=== PATIENT | female | born 1975 | race Caucasian/White ===

== ENCOUNTER → 2017-01-23 | Outpatient (CLI) | payer OTHER ==
[~2017-01-23] MED LIST: ACET325T38 PO; ALBU17AE3 IH; AMIT75TA2 PO; ASPI1TAB22 PO; BUTA1CAP39 PO; CYCL10TA9 PO; DCS100C PO; FERR-57 PO; GADOBUTROL 10 MMOL/10 ML (GADAVIST) VIAL IV ONE; HYDR-3454 PO; IBP600T1 PO; LORA10TA56 PO; NAPR-243 PO; NORE1TAB95 PO; OMEP20TA2 PO; ONAB100V IM; SUMA25TA3 PO; ZINC50TA49 PO
--- NOTE | 2017-01-23 15:39 | Diagnostic Imaging Report ---
PROCEDURE: MR imaging of the brain with and without contrast. TECHNIQUE: Multiplanar, multisequence MR imaging of the brain was performed with and without contrast. INDICATION: Migraine. Vision changes. 10 mL of Gadovist is administered intravenously. FINDINGS: There is no diffusion restriction to suggest an acute infarct or other diffusion abnormality. The brain parenchyma demonstrate minimal periventricular T2 hyperintense signal abnormalities similar to 01/19/2016. No associated mass effect and no postcontrast enhancement is seen. There is no adverse development from the prior study. No hydrocephalus. No extra-axial fluid collection is seen. The central vascular flow voids appear unremarkable. The internal auditory canals and inner ear structures appear symmetric. The pituitary gland is normal in size. No hypothalamic or pineal region mass. The orbits and paranasal sinuses appear grossly unremarkable. IMPRESSION: Unchanged minimal right periventricular white matter T2 hyperintense signal without mass effect or contrast enhancement is potentially related to focal gliosis from prior transient demyelinating process or other abnormality. No acute process. Dictated by: Dictated on workstation # [id number]
== END ==
LOC: RAD 13:56
PROVIDERS: ATTEND Nurse Practitioner Family
DX: G43.909 Migraine, unspecified, not intractable, without status migrainosus (principal); H53.9 Unspecified visual disturbance
CPT/HCPCS: 70553

== ENCOUNTER 2017-06-21 08:33 | Outpatient (RCR) | payer OTHER ==
[~2017-06-21 08:33] MED LIST changes: -GADOBUTROL 10 MMOL/10 ML (GADAVIST) VIAL IV ONE
[2017-06-21 09:41] LABS: BASOPHILS # (AUTO) 0.1 10^3/uL (0.0-0.1); BASOPHILS % (AUTO) 2 % (0-10); EOSINOPHILS # (AUTO) 0.2 10^3/uL (0.0-0.3); EOSINOPHILS % (AUTO) 4 % (0-10); LYMPHOCYTES # (AUTO) 1.5 X 10^3 (1.0-4.0); LYMPHOCYTES % (AUTO) 36 % (12-44); MEAN CORPUSCULAR HEMOGLOBIN 27 PG (25-34); MEAN CORPUSCULAR HGB CONC 33 G/DL (32-36); MEAN CORPUSCULAR VOLUME 81 FL (80-99); MEAN PLATELET VOLUME 9.8 FL (7.4-10.4); MONOCYTES # (AUTO) 0.4 X 10^3 (0.0-1.0); MONOCYTES % (AUTO) 8 % (0-12); NEUTROPHILS # (AUTO) 2.2 X 10^3 (1.8-7.8); NEUTROPHILS % (AUTO) 51 % (42-75); PLATELET COUNT 362 10^3/uL (130-400); RED BLOOD COUNT 4.95 10^6/uL (4.35-5.85); RED CELL DISTRIBUTION WIDTH 18.8 % (10.0-14.5); WHITE BLOOD COUNT 4.3 10^3/uL (4.3-11.0)
[2017-06-21 10:03] LABS: ANISOCYTOSIS MODERATE; BAND NEUTROPHILS 0 %; BASOPHILS % (MANUAL) 2 %; EOSINOPHILS % (MANUAL) 5 %; LYMPHOCYTES % (MANUAL) 37 %; NEUTROPHILS % (MANUAL) 51 %
[2017-06-21 10:13] LABS: ALANINE AMINOTRANSFERASE 34 U/L (0-55); ALBUMIN 4.3 GM/DL (3.2-4.5); ANION GAP 8 MMOL/L (5-14); ASPARTATE AMINO TRANSFERASE 26 U/L (5-34); BILIRUBIN,TOTAL 0.4 MG/DL (0.1-1.0); BLOOD UREA NITROGEN 11 MG/DL (7-18); BUN/CREATININE RATIO 13; CALCIUM 9.6 MG/DL (8.5-10.1); CARBON DIOXIDE 26 MMOL/L (21-32); CHLORIDE 105 MMOL/L (98-107); CREATININE SERUM 0.82 MG/DL (0.60-1.30); GFR ESTIMATED > 60; GLUCOSE 85 MG/DL (70-105); POTASSIUM 4.2 MMOL/L (3.6-5.0); SODIUM 139 MMOL/L (135-145); TOTAL PROTEIN 7.7 GM/DL (6.4-8.2)
[2017-06-21 10:22] LABS: PEP REPORT SEE PATH REPORT
[2017-06-21 10:53] LABS: THYROID STIMULATING HORMONE 1.93 UIU/ML (0.35-4.94)
[2017-06-21 11:36] LABS: %SAT TOTAL IRON BINDING CAPIC 7 % (15-50); TIBC 436 ug/dL (280-380)
[2017-06-22 10:05] LABS: UIBC 405 ug/dL (55-450)
[2017-06-25 11:18] LABS: CLIN PATHOLOGY REPORT FOOTNOTE
[2017-06-25 11:19] LABS: SERUM PROTEIN ELEC DETAIL L-17-0011831
[2017-06-25 11:39] LABS: LIGHT CHAIN KAPPA SERUM QUANT 25.79 mg/L (3.30-19.40); LIGHT CHAIN LAMBDA SERUM QUANT 23.53 mg/L (5.71-26.30)
[2017-06-27 08:13] LABS: IMMUNOFIX PATH REPORT NUMBER Complete (Complete)
== END 2017-07-14 | disposition home or self-care (01) ==
LOC: ONC 08:33
PROVIDERS: ATTEND Internal Medicine Hematology & Oncology
DX: D50.9 Iron deficiency anemia, unspecified (principal); R53.83 Other fatigue; E03.9 Hypothyroidism, unspecified; Z79.899 Other long term (current) drug therapy
CPT/HCPCS: 36415; 80053; 82728; 83540; 83883; 84155; 84165; 84443; 85007; 85027; 85045; 86334; 99214

== ENCOUNTER 2017-07-07 20:45 | Outpatient (CLI) | payer OTHER | END 2017-07-08 06:50 | disposition home or self-care (01) | LOC: SLEEP 20:45 | PROVIDERS: ATTEND Internal Medicine Hematology & Oncology | DX: G47.33 Obstructive sleep apnea (adult) (pediatric) (principal) | CPT/HCPCS: 95810 ==

== ENCOUNTER 2017-07-10 13:14 | Outpatient (RCR) | payer OTHER | END 2017-07-14 | disposition home or self-care (01) | PROVIDERS: ATTEND Nurse Practitioner Family | DX: M54.6 Pain in thoracic spine (principal) ==

== ENCOUNTER → 2017-08-03 | Outpatient (CLI) | payer OTHER ==
[2017-08-03 11:13] LABS: UR PEP SEE PATH
[2017-08-06 09:07] LABS: PROTEIN 24 HR 84 MG/24H (10-150); PROTEIN UR MG/DL 7 MG/DL; URINE CREATININE 126 MG/DL
== END ==
LOC: LAB 11:00
PROVIDERS: ATTEND Internal Medicine Hematology & Oncology
DX: D47.2 Monoclonal gammopathy (principal)
CPT/HCPCS: 36415; 82570; 84156; 84166

== ENCOUNTER → 2017-08-08 | Outpatient (CLI) | payer OTHER ==
[~2017-08-08] MED LIST changes: +RT-ALBUTEROL SULF 2.5 MG/3 ML PRE-MIX VIAL IH ONE
== END ==
LOC: RT 14:28
PROVIDERS: ATTEND Nurse Practitioner Family
DX: J45.909 Unspecified asthma, uncomplicated (principal); R06.02 Shortness of breath
CPT/HCPCS: 94060; 94640; 94726; 94729

== ENCOUNTER 2017-08-29 12:56 | Outpatient (RCR) | payer OTHER ==
[2017-08-01 11:07] LABS: BASOPHILS % (AUTO) 1 % (0-10); EOSINOPHILS # (AUTO) 0.1 10^3/uL (0.0-0.3); EOSINOPHILS % (AUTO) 2 % (0-10); HEMATOCRIT 37 % (35-52); HEMOGLOBIN 12.4 G/DL (11.5-16.0); LYMPHOCYTES # (AUTO) 1.3 X 10^3 (1.0-4.0); LYMPHOCYTES % (AUTO) 21 % (12-44); MEAN CORPUSCULAR HEMOGLOBIN 28 PG (25-34); MEAN CORPUSCULAR HGB CONC 33 G/DL (32-36); MEAN CORPUSCULAR VOLUME 83 FL (80-99); MEAN PLATELET VOLUME 9.9 FL (7.4-10.4); MONOCYTES # (AUTO) 0.5 X 10^3 (0.0-1.0); MONOCYTES % (AUTO) 7 % (0-12); NEUTROPHILS # (AUTO) 4.4 X 10^3 (1.8-7.8); NEUTROPHILS % (AUTO) 70 % (42-75); PLATELET COUNT 326 10^3/uL (130-400); RED CELL DISTRIBUTION WIDTH 14.8 % (10.0-14.5); WHITE BLOOD COUNT 6.3 10^3/uL (4.3-11.0)
[2017-08-01 11:36] LABS: BASOPHILS % (MANUAL) 1 %; ELLIPT/OVALOCYTES SLIGHT; EOSINOPHILS % (MANUAL) 5 %; LYMPHOCYTES % (MANUAL) 23 %; MONOCYTES % (MANUAL) 7 %; NEUTROPHILS % (MANUAL) 59 %; REACTIVE LYMPHOCYTES 5 %
[2017-08-09 11:07] LABS: ABSOLUTE RETIC # 45 10e9/L (24-90); BASOPHILS # (AUTO) 0.1 10^3/uL (0.0-0.1); BASOPHILS % (AUTO) 1 % (0-10); EOSINOPHILS # (AUTO) 0.2 10^3/uL (0.0-0.3); EOSINOPHILS % (AUTO) 3 % (0-10); HEMATOCRIT 38 % (35-52); HEMOGLOBIN 12.6 G/DL (11.5-16.0); LYMPHOCYTES # (AUTO) 1.6 X 10^3 (1.0-4.0); LYMPHOCYTES % (AUTO) 23 % (12-44); MEAN CORPUSCULAR HEMOGLOBIN 28 PG (25-34); MEAN CORPUSCULAR HGB CONC 33 G/DL (32-36); MEAN CORPUSCULAR VOLUME 84 FL (80-99); MEAN PLATELET VOLUME 9.3 FL (7.4-10.4); MONOCYTES # (AUTO) 0.6 X 10^3 (0.0-1.0); MONOCYTES % (AUTO) 9 % (0-12); NEUTROPHILS # (AUTO) 4.4 X 10^3 (1.8-7.8); NEUTROPHILS % (AUTO) 64 % (42-75); PLATELET COUNT 288 10^3/uL (130-400); RED BLOOD COUNT 4.52 10^6/uL (4.35-5.85); RED CELL DISTRIBUTION WIDTH 15.3 % (10.0-14.5); WHITE BLOOD COUNT 6.9 10^3/uL (4.3-11.0)
[2017-08-09 12:09] LABS: ANISOCYTOSIS SLIGHT; EOSINOPHILS % (MANUAL) 3 %; LYMPHOCYTES % (MANUAL) 24 %; MONOCYTES % (MANUAL) 10 %; NEUTROPHILS % (MANUAL) 63 %; POIKILOCYTOSIS SLIGHT
[2017-08-09 12:10] LABS: ELLIPT/OVALOCYTES SLIGHT
[~2017-08-29 12:56] MED LIST changes: -RT-ALBUTEROL SULF 2.5 MG/3 ML PRE-MIX VIAL IH ONE
== END 2017-10-30 | disposition home or self-care (01) ==
LOC: ONC 12:56
PROVIDERS: ATTEND Internal Medicine Hematology & Oncology
DX: D50.9 Iron deficiency anemia, unspecified (principal); R53.83 Other fatigue; E03.9 Hypothyroidism, unspecified; Z79.899 Other long term (current) drug therapy
CPT/HCPCS: 36415; 38221; 82728; 85007; 85027; 85045; 88237; 88264; 88280; 88305; 88311; 88312; 88313; 99213

== ENCOUNTER → 2017-10-22 | Outpatient (RCR) | payer OTHER | END | disposition home or self-care (01) | PROVIDERS: ATTEND Nurse Practitioner Family | DX: M54.6 Pain in thoracic spine (principal) ==

== ENCOUNTER 2017-11-14 08:45 | Outpatient (RCR) | payer OTHER | END 2018-01-21 14:58 | disposition home or self-care (01) | PROVIDERS: ATTEND Nurse Practitioner Family | DX: M54.6 Pain in thoracic spine (principal) ==

== ENCOUNTER → 2017-11-26 | Outpatient (CLI) | payer OTHER ==
--- NOTE | 2017-11-26 12:31 | Diagnostic Imaging Report ---
INDICATION: Back pain. TIME OF EXAM: 11:24 AM FINDINGS: Curvature and alignment of the thoracic spine is normal. The vertebral body heights are well maintained. No acute compression fracture is identified. The pedicles and paraspinous line are intact. IMPRESSION: No acute abnormality is identified. Dictated by: Dictated on workstation # [id number]
--- NOTE | 2017-11-26 12:32 | Diagnostic Imaging Report ---
INDICATION: Low back pain. TIME OF EXAM: 11:26 AM 3 views of the lumbar spine were obtained. FINDINGS: Curvature and alignment is normal. Vertebral body heights and disc spaces are well-maintained. No fracture or subluxation is identified. IMPRESSION: No acute bony abnormality is detected. Dictated by: Dictated on workstation # [id number]
--- NOTE | 2017-11-26 12:33 | Diagnostic Imaging Report ---
INDICATION: Neck pain. TIME OF EXAM: 11:20 a.m. Curvature and alignment of the cervical spine is normal. Vertebral body heights are maintained. Disc spaces are preserved. The prevertebral tissues are unremarkable. The odontoid appears intact. No fractures are seen. IMPRESSION: No acute bony abnormality is detected. Dictated by: Dictated on workstation # [id number]
== END ==
LOC: RAD 10:47
PROVIDERS: ATTEND Nurse Practitioner Family
DX: M54.2 Cervicalgia (principal); M54.5 Low back pain; M54.6 Pain in thoracic spine
CPT/HCPCS: 72040; 72072; 72100

== ENCOUNTER → 2017-11-26 | Outpatient (CLI) | payer OTHER ==
[2017-11-26 12:19] LABS: FREE T4 (FREE THYROXINE) 1.23 NG/DL (0.70-1.48)
== END ==
LOC: LAB 11:21
PROVIDERS: ATTEND Nurse Practitioner Family
DX: E03.9 Hypothyroidism, unspecified (principal); R53.81 Other malaise
CPT/HCPCS: 36415; 84439; 84443

== ENCOUNTER → 2017-12-29 | Outpatient (CLI) | payer OTHER ==
--- NOTE | 2017-12-29 11:22 | Diagnostic Imaging Report ---
PROCEDURE: MR imaging cervical spine without contrast. TECHNIQUE: Multiplanar, multisequence MR imaging of the cervical spine was performed without contrast. INDICATION: Spinal pain. Study compared 10/14/2007. FINDINGS: The cervical spinal cord has a normal volume, normal morphology and normal signal intensity. Cervical alignment is stable. The vertebral body heights are maintained. The marrow signal intensity unremarkable. There is no paravertebral mass, hemorrhage or fluid collection and the cervical spinal canal appears widely patent at all vertebral body and disc space levels. There is very minimal desiccation and trace bulging of discs at the C3-C4, C4-C5, C5-C6 and C6-C7 levels showing minimal progression from the prior study but resulting in no foraminal encroachment. IMPRESSION: Very slight mid to lower cervical desiccated annular disc bulges without focal herniation nor resultant stenosis. Alignment within normal limits with no acute osseous pathology and a stable normal appearance of the cervical spinal cord. Dictated by: Dictated on workstation # [id number]
--- NOTE | 2017-12-29 11:28 | Diagnostic Imaging Report ---
PROCEDURE: MRI lumbar spine. TECHNIQUE: Multiplanar, multisequence MRI of the lumbar spine was performed without contrast. DATE: 12/29/2017. COMPARISON: Lumbar spine radiographs 11/26/2017. INDICATION: 42-year-old female, low back pain. FINDINGS: There is normal lumbosacral spine alignment. The bone marrow signal is unremarkable. The visualized cord and conus medullaris is unremarkable and terminates at the L1-L2 level. The disc heights are well preserved. There is no disc dessication. L1-L2: There is no disc bulge. The facet joints and ligamentum flavum are unremarkable. There is no foraminal narrowing. There is no spinal canal stenosis. L2-L3: There is no disc bulge. The facet joints and ligamentum flavum are unremarkable. There is no foraminal narrowing. There is no spinal canal stenosis. L3-L4: There is no disc bulge. The facet joints and ligamentum flavum are unremarkable. There is no foraminal narrowing. There is no spinal canal stenosis. L4-L5: There is no disc bulge. The facet joints and ligamentum flavum are unremarkable. There is no foraminal narrowing. There is no spinal canal stenosis. L5-S1: There is no disc bulge. The facet joints and ligamentum flavum are unremarkable. There is no foraminal narrowing. There is no spinal canal stenosis. IMPRESSION: [Unremarkable magnetic resonance imaging of the lumbosacral spine.] Dictated by: Dictated on workstation # [id number]
--- NOTE | 2017-12-29 11:32 | Diagnostic Imaging Report ---
INDICATION: Back pain. No previous for direct comparison. The study, however, correlated with plain films 11/26/2017. FINDINGS: The thoracic spinal cord has a normal volume and normal morphology and normal signal intensity. CSF circumscribes the cord at all levels. Thoracic vertebral body heights are maintained. The alignment is anatomic. The marrow signal intensity was unremarkable. There is desiccation and bulging of the T9-T10 disc at the midline where there is a small protrusion slightly indenting the midline ventral thecal sac resulting in no substantial canal stenosis. The patient's neural foramen are widely patent bilaterally at all levels. Remaining discs well-hydrated and nondisplaced. Ligamentous structures unremarkable. Facet relationships normal. IMPRESSION: Small focal midline T9-T10 central posterior disc protrusion without significant stenosis. Normal cord, normal alignment, no acute bony pathology. Dictated by: Dictated on workstation # [id number]
== END ==
LOC: RAD 10:08
PROVIDERS: ATTEND Nurse Practitioner Family
DX: M51.24 Other intervertebral disc displacement, thoracic region (principal)
CPT/HCPCS: 72141; 72146; 72148

== ENCOUNTER → 2018-05-28 | Outpatient (RCR) | payer OTHER ==
[2018-02-27 10:53] LABS: BASOPHILS % (AUTO) 1 % (0-10); EOSINOPHILS # (AUTO) 0.1 10^3/uL (0.0-0.3); EOSINOPHILS % (AUTO) 3 % (0-10); HEMATOCRIT 39 % (35-52); HEMOGLOBIN 13.4 G/DL (11.5-16.0); LYMPHOCYTES # (AUTO) 1.3 X 10^3 (1.0-4.0); LYMPHOCYTES % (AUTO) 23 % (12-44); MEAN CORPUSCULAR HEMOGLOBIN 31 PG (25-34); MEAN CORPUSCULAR HGB CONC 34 G/DL (32-36); MEAN CORPUSCULAR VOLUME 91 FL (80-99); MEAN PLATELET VOLUME 9.7 FL (7.4-10.4); MONOCYTES # (AUTO) 0.4 X 10^3 (0.0-1.0); MONOCYTES % (AUTO) 8 % (0-12); NEUTROPHILS # (AUTO) 3.5 X 10^3 (1.8-7.8); NEUTROPHILS % (AUTO) 66 % (42-75); PLATELET COUNT 313 10^3/uL (130-400); RED BLOOD COUNT 4.32 10^6/uL (4.35-5.85); RED CELL DISTRIBUTION WIDTH 13.4 % (10.0-14.5); WHITE BLOOD COUNT 5.4 10^3/uL (4.3-11.0)
[2018-02-27 11:15] LABS: ALANINE AMINOTRANSFERASE 28 U/L (0-55); ALBUMIN 4.4 GM/DL (3.2-4.5); ALKALINE PHOSPHATASE 69 U/L (40-136); BILIRUBIN,TOTAL 0.3 MG/DL (0.1-1.0); BUN/CREATININE RATIO 21; CALCIUM 9.5 MG/DL (8.5-10.1); CARBON DIOXIDE 25 MMOL/L (21-32); CHLORIDE 105 MMOL/L (98-107); CREATININE SERUM 0.76 MG/DL (0.60-1.30); GFR ESTIMATED > 60; POTASSIUM 3.9 MMOL/L (3.6-5.0); SODIUM 140 MMOL/L (135-145); TOTAL PROTEIN 7.4 GM/DL (6.4-8.2)
[2018-02-27 11:25] LABS: GLUCOSE 59 MG/DL (70-105)
[2018-03-06 07:40] LABS: IMMUNOFIX PATH REPORT NUMBER Complete (Complete)
[2018-05-28 08:12] LABS: BASOPHILS % (AUTO) 1 % (0-10); EOSINOPHILS # (AUTO) 0.3 10^3/uL (0.0-0.3); EOSINOPHILS % (AUTO) 5 % (0-10); HEMATOCRIT 40 % (35-52); HEMOGLOBIN 13.6 G/DL (11.5-16.0); LYMPHOCYTES # (AUTO) 1.1 X 10^3 (1.0-4.0); LYMPHOCYTES % (AUTO) 20 % (12-44); MEAN CORPUSCULAR HEMOGLOBIN 30 PG (25-34); MEAN CORPUSCULAR HGB CONC 34 G/DL (32-36); MEAN CORPUSCULAR VOLUME 90 FL (80-99); MEAN PLATELET VOLUME 9.5 FL (7.4-10.4); MONOCYTES # (AUTO) 0.5 X 10^3 (0.0-1.0); MONOCYTES % (AUTO) 10 % (0-12); NEUTROPHILS # (AUTO) 3.6 X 10^3 (1.8-7.8); NEUTROPHILS % (AUTO) 66 % (42-75); PLATELET COUNT 299 10^3/uL (130-400); RED BLOOD COUNT 4.49 10^6/uL (4.35-5.85); WHITE BLOOD COUNT 5.4 10^3/uL (4.3-11.0)
== END | disposition home or self-care (01) ==
LOC: ONC 02-27 10:30
PROVIDERS: ATTEND Internal Medicine Hematology & Oncology
DX: D50.9 Iron deficiency anemia, unspecified (principal); E03.9 Hypothyroidism, unspecified; Z79.899 Other long term (current) drug therapy
CPT/HCPCS: 36415; 80053; 82728; 83883; 84155; 84165; 85025; 86334; 99213

== ENCOUNTER 2018-06-07 13:34 | Outpatient (RCR) | payer OTHER | END 2018-06-14 | disposition home or self-care (01) | LOC: ONC 13:34 | PROVIDERS: ATTEND Internal Medicine Hematology & Oncology | DX: D50.9 Iron deficiency anemia, unspecified (principal); E03.9 Hypothyroidism, unspecified; Z79.899 Other long term (current) drug therapy | CPT/HCPCS: 99213 ==

== ENCOUNTER → 2019-01-27 | Outpatient (CLI) | payer OTHER ==
--- NOTE | 2019-01-27 10:54 | Diagnostic Imaging Report ---
INDICATION: Routine screening. COMPARISON: 08/18/2015. TECHNIQUE: 2D and 3D bilateral screening mammography was performed with CAD. FINDINGS: Both breasts are heterogeneously dense, limiting the sensitivity of mammography. No dominant mass or malignant appearing microcalcifications are seen. The axillae are unremarkable. IMPRESSION: No mammographic features suspicious for malignancy are identified. ACR BI-RADS Category 1: Negative. Result letter will be mailed to the patient. Note: At least 10% of breast cancer is not imaged by mammography. Dictated by: Dictated on workstation # [id number]
== END ==
LOC: RAD 08:22
PROVIDERS: ATTEND Obstetrics & Gynecology
DX: Z12.31 Encounter for screening mammogram for malignant neoplasm of breast (principal)
CPT/HCPCS: 77067

== ENCOUNTER 2019-08-20 12:00 | Outpatient (RCR) | payer OTHER ==
[2019-08-20] MEDS ORDERED: LEVO25TA5 PO (12:08)
[2019-08-20] MEDS ORDERED: MELA10CA2 PO (12:08)
[2019-08-20] MEDS ORDERED: MAGN400T39 PO (12:08)
[2019-08-20] MEDS ORDERED: DOCU-143 PO (12:08)
[2019-08-20] MEDS ORDERED: MULT1CAP27 PO (12:08)
[2019-08-20] MEDS ORDERED: FERR-84 PO (12:08)
[2019-08-20] MEDS ORDERED: DULO60CA6 PO (12:08)
[2019-08-20] MEDS ORDERED: CETI10TA17 PO (12:08)
[2019-08-20] MEDS ORDERED: RT-ALBUINH IH (12:08)
[2019-08-20] MEDS ORDERED: MONT10TA24 PO (12:08)
[2019-08-20] MEDS ORDERED: ONAB100V IJ (12:10)
[2019-08-27] MEDS ORDERED: IBUP-844 PO (09:17)
[2019-08-27] MEDS ORDERED: ACET-78 PO (09:17)
[2019-08-27] MEDS ORDERED: OXC5T PO (09:17)
== END 2019-11-18 | disposition home or self-care (01) ==
LOC: LAB 12:00 → EDSTATUS 08-22 11:32
PROVIDERS: ATTEND Family Medicine
DX: E03.4 Atrophy of thyroid (acquired) (principal)
CPT/HCPCS: 36415; 84436; 84443; 85025; 86850; 86900; 86901; 87081

== ENCOUNTER 2019-08-22 11:39 | Outpatient (RCR) | payer OTHER ==
[2019-08-20 12:13] VITALS: BP 118/79
[2019-08-20 13:42] LABS: BASOPHILS # (AUTO) 0.1 10^3/uL (0.0-0.1); BASOPHILS % (AUTO) 1 % (0-10); EOSINOPHILS # (AUTO) 0.3 10^3/uL (0.0-0.3); EOSINOPHILS % (AUTO) 3 % (0-10); HEMATOCRIT 42 % (35-52); HEMOGLOBIN 14.2 G/DL (11.5-16.0); LYMPHOCYTES # (AUTO) 1.7 X 10^3 (1.0-4.0); LYMPHOCYTES % (AUTO) 17 % (12-44); MEAN CORPUSCULAR HEMOGLOBIN 30 PG (25-34); MEAN CORPUSCULAR HGB CONC 34 G/DL (32-36); MEAN CORPUSCULAR VOLUME 90 FL (80-99); MEAN PLATELET VOLUME 10.4 FL (7.4-10.4); MONOCYTES # (AUTO) 0.7 X 10^3 (0.0-1.0); MONOCYTES % (AUTO) 7 % (0-12); NEUTROPHILS # (AUTO) 7.3 X 10^3 (1.8-7.8); NEUTROPHILS % (AUTO) 73 % (42-75); PLATELET COUNT 349 10^3/uL (130-400); RED CELL DISTRIBUTION WIDTH 13.3 % (10.0-14.5)
[~2019-08-22] VITALS: Ht 167 cm; Wt 87.6 kg
[~2019-08-22 11:39] MED LIST changes: +CETI10TA17 PO; +DOCU-143 PO; +DULO60CA6 PO; +FERR-84 PO; +LEVO25TA5 PO; +MAGN400T39 PO; +MELA10CA2 PO; +MONT10TA24 PO; +MULT1CAP27 PO; +ONAB100V IJ; +RT-ALBUINH IH
[2019-08-22 12:00] LABS: BILIRUBIN,URINE NEGATIVE (NEGATIVE); CLARITY,URINE CLEAR; COLOR,URINE YELLOW; GLUCOSE, URINE (UA) NEGATIVE (NEGATIVE); KETONES,URINE NEGATIVE (NEGATIVE); LEUKOCYTE ESTERASE ,URINE 1+ (NEGATIVE); NITRITE,URINE NEGATIVE (NEGATIVE); PROTEIN,URINE NEGATIVE (NEGATIVE)
[2019-08-22 12:08] LABS: BACTERIA,URINE FEW /HPF
--- NOTE | 2019-08-26 09:24 | Progress Note-Pre Operative ---
Pre-Operative Progress Note H&P Reviewed The H&P was reviewed, patient examined and no changes noted. Date Seen by Provider: Aug 26, 2019 Time Seen by Provider: 09:20 Date H&P Reviewed: Aug 26, 2019 Time H&P Reviewed: 09:15 Pre-Operative Diagnosis: adenomyosis, endometriosis, anemia TASIA DEMPSEY DO Aug 26, 2019 09:24 POS
[2019-08-27] MEDS ORDERED: IBUP-844 PO (09:17)
[2019-08-27] MEDS ORDERED: OXC5T PO (09:17)
[2019-08-27] MEDS ORDERED: ACET-78 PO (09:17)
== END 2019-11-20 | disposition home or self-care (01) ==
LOC: PREOP 11:39
PROVIDERS: ATTEND Obstetrics & Gynecology
DX: Z01.812 Encounter for preprocedural laboratory examination (principal); N80.9 Endometriosis, unspecified; N92.1 Excessive and frequent menstruation with irregular cycle; D64.9 Anemia, unspecified
CPT/HCPCS: 36415; 81000; 85025; 86850; 86900; 86901; 87081; 87088

== ENCOUNTER 2019-08-26 07:26 | Day surgery (SDC) | payer OTHER ==
[2019-08-26] VITALS (12 sets, daily range): BP systolic 97–119; BP diastolic 60–77
[~2019-08-26] VITALS: Ht 167 cm; Wt 87.6 kg
[2019-08-26] MEDS ORDERED: SEVOFLURANE (ULTANE) 15 ML INHAL SOLN ONE ×4 (07:49→11:37)
[2019-08-26] MEDS ORDERED: fentaNYL INJECTION 100 MCG/2 ML AMP ONE ×2 (07:49→10:43)
[2019-08-26] MEDS ORDERED: DEXAMETHASONE 10 MG/ML (DECADRON) 1 ML VIAL ONE (07:49)
[2019-08-26] MEDS ORDERED: proPOfol 200 MG/20 ML (DIPRIVAN) VIAL IV ONE (07:49)
[2019-08-26] MEDS ORDERED: ONDANSETRON 4 MG/2 ML (SDV) Z0FRAN ONE (07:49)
[2019-08-26] MEDS ORDERED: ROCURONIUM 10 MG/ML 5 ML SYRINGE IV ONE (07:49)
[2019-08-26] MEDS ORDERED: LIDOCAINE PF 2% 5 ML (XYLOCAINE) VIAL ONE (07:49)
[2019-08-26] MEDS ORDERED: MIDAZOLAM 2 MG/2 ML (VERSED) VIAL ONE (07:49)
[2019-08-26] MEDS ORDERED: CLINDAMYCIN 600 MG/50 ML IVPB 50 ML IV ONE (08:15)
[2019-08-26] MEDS: LACTATED RINGERS 1,000 ML IV PRN ×2 (08:19→10:24)
[2019-08-26] MEDS ORDERED: BUPIVACAINE 0.5% 30 ML (SENSORCAINE) VIAL ONE (08:53)
[2019-08-26] MEDS ORDERED: BUP/EPI 0.25% 1:200,000 (MARCAINE) 10 ML VIAL IJ ONE (08:54)
[2019-08-26] MEDS ORDERED: KETOROLAC 30 MG/ML VIAL ONE (11:02)
[2019-08-26] MEDS ORDERED: GLYCOPYRROLATE 0.2 MG/ML (ROBINUL) 2 ML VIAL ONE (11:02)
[2019-08-26] MEDS ORDERED: NEOSTIGMINE 3 MG/3 ML VIAL ONE (11:02)
[2019-08-26] MEDS: KETOROLAC 30 MG/ML VIAL IV SCH ×2 (11:05→17:07)
--- NOTE | 2019-08-26 11:11 | Operative Report ---
Operative Report Date of Procedure/Surgery Aug 26, 2019 Surgeon (s) TASIA DEMPSEY DO [employer] Specialist (s): NA Post-Operative Diagnosis adenomyosis endometriosis menorrhagia an Procedure Performed Ra[facility], Bilateral salpingectomy, right ovarian fulgeration of cyst left lysis of adhesions ovary Description of Procedure Anesthesia Type: General Estimated blood loss (mL): 50 Specimen(s) collected/removed uterus, tubes Findings of the Procedure boggy uterus scarred tubes, left tube scarred to ovarian fossa right ovarian cyst/ functional, endometriosis Allergies and Home Medications Allergies Coded Allergies: cephalexin (Verified Allergy, Mild, HIVES, 08/20/19) Home Medications Albuterol Sulfate 1 Puff Puff, 2 PUFF IH Q4H PRN for COUGH, (Reported) 1 PUFF = 90 MCG Cetirizine HCl 10 Mg Tablet, 10 MG PO DAILY, (Reported) Docusate Sodium 100 Mg Capsule, 400 MG PO DAILY, (Reported) Duloxetine HCl 60 Mg Capsule.dr, 60 MG PO DAILY, (Reported) Ferrous Sulfate 325 Mg Tablet, 325 MG PO DAILY, (Reported) Levothyroxine Sodium 25 Mcg Tablet, 25 MCG PO DAILY, (Reported) Magnesium Oxide 400 Mg Tablet, 400 MG PO DAILY, (Reported) Melatonin 10 Mg Capsule, 10 MG PO DAILY, (Reported) Montelukast Sodium 10 Mg Tablet, 10 MG PO DAILY, (Reported) Multivitamin 1 Each Capsule, 1 EACH PO DAILY, (Reported) Patient Home Medication List Home Medication List Reviewed: Yes TASIA DEMPSEY DO Aug 26, 2019 11:11 POS
[2019-08-26] MEDS ORDERED: CHLORASEPTIC LOZENGE MM PRN (11:15)
[2019-08-26] MEDS ORDERED: morphine INJ 4 MG/ML 1 ML (VIAL/SYRINGE) IVP PRN (11:15)
[2019-08-26] MEDS ORDERED: PHENYLEPHRINE 100 MCG/ML 10 ML (ANESTHESIA) SYR ONE (11:37)
[2019-08-26] MEDS ORDERED: PROMETHAZINE INJ 25 MG/ML (PHENERGAN) AMP IVP ONE (11:45)
[2019-08-26] MEDS ORDERED: ONDANSETRON 4 MG/2 ML (SDV) Z0FRAN IVP PRN (11:45)
[2019-08-26] MEDS ORDERED: morphine INJ 10 MG/ML 1ML (SYR OR VIAL) IVP ONE (11:45)
[2019-08-26] MEDS ORDERED: HYDROmorphone 2 MG/ML VIAL (DILAUDID) IV ONE (11:45)
[2019-08-26] MEDS ORDERED: MEPERIDINE (DEMEROL) INJ 50 MG/ML IVP ONE (11:45)
--- NOTE | 2019-08-26 12:30 | NUR ---
CARLOS GONZALEZ] admitted to room 3304-1, with an admitting diagnosis of ROBOTIC HYSTERECTOMY, on 08/26/19 from DAY SURGERY via , accompanied by .CARLOS GONZALEZ introduced to surroundings, call light, bed controls, phone, TV, temperature control, lights, meal times, smoking policy, visitor policy, side rail policy, bathrooms and showers. Patient Rights given to patient in the handbook.CARLOS GONZALEZ verbalizes understanding that [facility] is not responsible for the loss or damage to any personal effects or valuables that are kept in the patients posession during their hospitalization. The following Patient Care Plans were discussed with the : Discharge Planning, ,, and . CARLOS GONZALEZ verbalizes understanding of Interdisciplinary Patient Education. Patient and/or family were informed about the Rapid Response Team and its purpose.
--- NOTE | 2019-08-26 12:40 | NUR ---
INITIAL ASSESSMENT COMPLETED, VSS, NO DISTRESS NOTED, WILL MONITOR, PLAN OF CARE EXPLAINED, WILL MONITOR CLOSELY.
[2019-08-26] MEDS: LACTATED RINGERS 1,000 ML IV SCH ×2 (13:00→19:56)
--- NOTE | 2019-08-26 14:31 | NUR ---
RT HERE AT PTS BEDSIDE.
[2019-08-26] MEDS: ACETAMINOPHEN 500 MG TAB (TYLENOL) PO SCH ×2 (14:51→21:55)
--- NOTE | 2019-08-26 17:25 | NUR ---
Garcia DC'd at this time per patient's request. Every movement of the catheter causes the patient to wince in pain. Patient tearful as garica DC'd.
[2019-08-26] MEDS ORDERED: RT-ALBUTEROL SULF 2.5 MG/3 ML PRE-MIX VIAL INH PRN (18:00)
--- NOTE | 2019-08-26 18:30 | NUR ---
Patient assisted up to restroom, + void noted. Pericare completed and patient ambulated back to bed without difficulty.
--- NOTE | 2019-08-26 18:46 | NUR ---
Dr. Díaz updated on patient's status. New orders received.
[2019-08-26] MEDS ORDERED: BELLADONNA ALK/OPIUM (B & O) 30 MG SUPP PR PRN (19:00)
[2019-08-27 00:45] VITALS: BP 100/65
[2019-08-27] MEDS: KETOROLAC 30 MG/ML VIAL IV SCH ×2 (00:45→06:37)
[2019-08-27 03:45] VITALS: BP 92/52
[2019-08-27] MEDS: LACTATED RINGERS 1,000 ML IV SCH (04:14)
[2019-08-27] MEDS ORDERED: IBUPROFEN 600 MG (MOTRIN) TAB PO ONE (06:32)
[2019-08-27] MEDS: ACETAMINOPHEN 500 MG TAB (TYLENOL) PO SCH (06:36)
--- NOTE | 2019-08-27 07:09 | Anesthesia-General Post-Op ---
General Patient Condition Mental Status/LOC: Same as Preop Cardiovascular: Satisfactory Nausea/Vomiting: Absent Respiratory: Satisfactory Pain: Controlled Complications: Absent Post Op Complications Complications None Follow Up Care/Instructions Patient Instructions None needed. Anesthesia/Patient Condition Patient Condition Patient is doing well, no complaints, stable vital signs, no apparent adverse anesthesia problems. No complications reported per nursing. HANSEL BARKLEY CRNA Aug 27, 2019 07:09 POS
[2019-08-27 08:45] VITALS: BP 102/66
[2019-08-27] MEDS ORDERED: ACET-77 PO (09:17)
[2019-08-27] MEDS ORDERED: OXC5T PO (09:17)
[2019-08-27] MEDS ORDERED: IBUP-844 PO (09:17)
--- NOTE | 2019-08-27 09:19 | Discharge Inst-Women's Service ---
Discharge Inst-Women's Serv Depart Medication/Instructions New, Converted or Re-Newed RX: RX on Chart Instructions nothing in vagina for 10-12 weeks no driving for 1 week no lifting over 25 lbs Final Diagnosis endometriosis adenomyosis menorrhagia anemia Problems Reviewed?: Yes Consults/Follow Up Additional Follow Up: Yes (1 week for incision check with Codie, 10-12 weeks with dino) Activity Activity: Activity as Tolerated Driving Instructions: No Driving for 1 Week NO SMOKING: NO SMOKING Nothing Inside Vagina: No Douching, No [place], No Tampons Diet Discharge Diet: No Restrictions Symptoms to Report to DrZaki: Bleeding Excessive, Pain Increased, Fever Over 101 Degrees F, Vaginal Bleeding Increase, Cramps in Feet or Legs, Vaginal Discharge Foul For Any Problems or Questions: Contact Your Physician Skin/Wound Care Infection Signs and Symptoms: Increased Redness, Foul Odor of Wound, Increased Drainage, Skin Itchy or Has a Rash, Increased Swelling, Temperature Above 101 F Operative Area Clean and Dry: You May Remove Bandage (in 3 days, keep covered until then, may removed if wet or soiled and replace with bandage) Stitches/[place]/Dermabond: Dermabond Bathing Instructions: TASIA Cuevas DO Aug 27, 2019 09:19 POS
[2019-08-27] MEDS ORDERED: IBUPROFEN 600 MG (MOTRIN) TAB PO SCH (11:15)
== END 2019-08-27 11:30 | disposition home or self-care (01) ==
LOC: SDC 07:26 → WS 12:07 → SDC 08-27 11:30
PROVIDERS: ATTEND Obstetrics & Gynecology
DX: N72 Inflammatory disease of cervix uteri (principal); N88.8 Other specified noninflammatory disorders of cervix uteri; N83.8 Other noninflammatory disorders of ovary, fallopian tube and broad ligament; N73.6 Female pelvic peritoneal adhesions (postinfective); Z88.1 Allergy status to other antibiotic agents; Z79.899 Other long term (current) drug therapy; J45.909 Unspecified asthma, uncomplicated; E03.9 Hypothyroidism, unspecified; D50.9 Iron deficiency anemia, unspecified; E66.9 Obesity, unspecified; Z68.31 Body mass index [BMI] 31.0-31.9, adult; N80.9 Endometriosis, unspecified; G25.81 Restless legs syndrome; G43.909 Migraine, unspecified, not intractable, without status migrainosus; Z80.3 Family history of malignant neoplasm of breast; Z80.0 Family history of malignant neoplasm of digestive organs; F41.9 Anxiety disorder, unspecified; F32.9 Major depressive disorder, single episode, unspecified
CPT/HCPCS: 36415; 84439; 84703; 86850; 86900; 86901; 88307; 94664

== ENCOUNTER 2019-09-26 10:10 | Outpatient (RCR) | payer OTHER ==
[~2019-09-26 10:10] MED LIST changes: +ACET-77 PO; +IBUP-844 PO; +OXC5T PO
== END 2019-10-09 | disposition home or self-care (01) ==
DX: M54.2 Cervicalgia (principal); M26.629 Arthralgia of temporomandibular joint, unspecified side

== ENCOUNTER 2019-12-31 14:00 | Outpatient (RCR) | payer OTHER ==
[~2019-12-31 14:00] MED LIST changes: -ACET-77 PO; +ACET-78 PO; -MONT10TA24 PO; +MONT10TA26 PO
== END 2020-01-20 | disposition home or self-care (01) ==
DX: M62.89 Other specified disorders of muscle (principal); M26.629 Arthralgia of temporomandibular joint, unspecified side; J45.909 Unspecified asthma, uncomplicated; M19.90 Unspecified osteoarthritis, unspecified site; E07.9 Disorder of thyroid, unspecified; F32.9 Major depressive disorder, single episode, unspecified; M54.2 Cervicalgia; Z87.81 Personal history of (healed) traumatic fracture

== ENCOUNTER → 2020-12-28 | Outpatient (CLI) | payer OTHER ==
[~2020-12-28] MED LIST changes: -MONT10TA26 PO; +MONT10TA32 PO
--- NOTE | 2020-12-28 14:02 | Diagnostic Imaging Report ---
INDICATION: Pain, fall. COMPARISON: Imaging from the same date and CT dated 07/29/2015. TECHNIQUE: Single radiograph of the pelvis dated 12/28/2020. FINDINGS: No acute fracture or dislocation. No destructive osseous process. The sacroiliac joints are intact. Minimal degenerative changes of the pubic symphysis. The bilateral hip joints are intact. IMPRESSION: No acute osseous abnormality with minimal degenerative changes, particularly involving the pubic symphysis. Dictated by: Dictated on workstation # [id number]
--- NOTE | 2020-12-28 14:07 | Diagnostic Imaging Report ---
INDICATION: Back pain, fall COMPARISON: 11/26/2017 TECHNIQUE: 3 radiographs lumbar spine dated 12/28/2020. FINDINGS: 5 lumbar type vertebral bodies are present. Alignment of the lumbar spine is well maintained. Vertebral body heights are well-maintained. Disc space heights are well-maintained. No acute fracture. The sacroiliac joints are intact. IMPRESSION: Similar-appearing examination without acute osseous abnormality. Dictated by: Dictated on workstation # [id number]
== END ==
LOC: RAD 13:23
PROVIDERS: ATTEND Nurse Practitioner Family
DX: M16.0 Bilateral primary osteoarthritis of hip (principal)
CPT/HCPCS: 72100; 72170

== ENCOUNTER → 2021-08-18 | Outpatient (CLI) | payer OTHER ==
[~2021-08-18] MED LIST changes: -DULO60CA6 PO; +DULO60CA7 PO
--- NOTE | 2021-08-18 16:05 | Diagnostic Imaging Report ---
INDICATION: Bilateral knee pain COMPARISON: None. FINDINGS: Multiple radiographic views of the bilateral knees were obtained and show no fractures, dislocations, or other acute bony abnormalities. Joint spaces are well maintained throughout. The soft tissues appear unremarkable. No radiopaque foreign bodies are identified. IMPRESSION: Unremarkable radiographic exam of the bilateral knees. Dictated by: Dictated on workstation # [id number]
== END ==
LOC: ORTHO 14:18
PROVIDERS: ATTEND Orthopaedic Surgery
DX: M25.561 Pain in right knee (principal); M25.562 Pain in left knee
CPT/HCPCS: 73562; G0463; 99202

== ENCOUNTER 2021-09-28 14:48 | Outpatient (RCR) | payer OTHER ==
[~2021-09-28 14:48] MED LIST changes: +MONT-40 PO; -MONT10TA32 PO
== END 2021-10-14 | disposition home or self-care (01) ==
PROVIDERS: ATTEND Orthopaedic Surgery
DX: M25.562 Pain in left knee (principal); M25.561 Pain in right knee

== ENCOUNTER → 2021-11-14 | Outpatient (RCR) | payer OTHER | END | disposition home or self-care (01) | PROVIDERS: ATTEND Orthopaedic Surgery | DX: M22.42 Chondromalacia patellae, left knee (principal); M22.41 Chondromalacia patellae, right knee ==

== ENCOUNTER 2021-11-21 15:24 | Outpatient (RCR) | payer OTHER | END 2021-12-12 | disposition home or self-care (01) | PROVIDERS: ATTEND Orthopaedic Surgery | DX: M22.42 Chondromalacia patellae, left knee (principal); M22.41 Chondromalacia patellae, right knee; J45.909 Unspecified asthma, uncomplicated | CPT/HCPCS: 97110; G0283 ==

== ENCOUNTER 2021-12-16 15:25 | Outpatient (RCR) | payer OTHER | END 2022-01-12 | disposition home or self-care (01) | PROVIDERS: ATTEND Orthopaedic Surgery | DX: M22.42 Chondromalacia patellae, left knee (principal); M22.41 Chondromalacia patellae, right knee; J45.909 Unspecified asthma, uncomplicated ==

== ENCOUNTER → 2021-12-20 | Outpatient (CLI) | payer OTHER | LOC: ORTHO 11:38 | PROVIDERS: ATTEND Orthopaedic Surgery | DX: M25.562 Pain in left knee (principal); M25.561 Pain in right knee ==

== ENCOUNTER → 2022-01-24 | Outpatient (CLI) | payer OTHER ==
--- NOTE | 2022-01-24 13:09 | Diagnostic Imaging Report ---
Indication: Routine screening. Comparison is made with prior mammogram 01/27/2019 and 08/18/2015. 2-D and 3-D bilateral screening mammography was performed with CAD. CAD is utilized. The current study was also evaluated with a Computer Aided Detection (CAD) system. Both breast are heterogeneously dense, limiting the sensitivity of mammography. The parenchymal pattern appears stable. No mass or malignant-appearing microcalcifications are identified. The axillae are unremarkable. IMPRESSION: BI-RADS Category 1 No mammographic features suspicious for malignancy are identified. ACR BI-RADS Category 1: Negative. Result letter will be mailed to the patient. Note: At least 10% of breast cancer is not imaged by mammography. Dictated by: Dictated on workstation # [id number]
== END ==
LOC: RAD 09:30
PROVIDERS: ATTEND Obstetrics & Gynecology
DX: Z12.31 Encounter for screening mammogram for malignant neoplasm of breast (principal)
CPT/HCPCS: 77063; 77067

== ENCOUNTER 2022-02-07 15:41 | Outpatient (RCR) | payer OTHER | END 2022-02-11 | disposition home or self-care (01) | PROVIDERS: ATTEND Orthopaedic Surgery | DX: M22.42 Chondromalacia patellae, left knee (principal); M22.41 Chondromalacia patellae, right knee; J45.909 Unspecified asthma, uncomplicated ==

== ENCOUNTER 2022-06-26 14:07 | Outpatient (CLI) | payer OTHER | END 2022-06-26 14:25 | LOC: SLEEP 14:07 | PROVIDERS: ATTEND Family Medicine | DX: G47.36 Sleep related hypoventilation in conditions classified elsewhere (principal) | CPT/HCPCS: G0399 ==

== ENCOUNTER → 2022-11-14 | Outpatient (RCR) | payer OTHER ==
[~2022-11-14] MED LIST changes: +ALBU8.5H6 IH; -RT-ALBUINH IH
== END | disposition home or self-care (01) ==
PROVIDERS: ATTEND Nurse Practitioner Family
DX: M54.16 Radiculopathy, lumbar region (principal); M54.2 Cervicalgia; G89.29 Other chronic pain; J45.909 Unspecified asthma, uncomplicated

== ENCOUNTER → 2022-12-05 | Outpatient (CLI) | payer OTHER ==
--- NOTE | 2022-12-05 12:24 | Diagnostic Imaging Report ---
INDICATION: Pain COMPARISON: 11/26/2017 TECHNIQUE: 3 radiographs of the cervical spine dated 12/05/2022. FINDINGS: Alignment of the cervical spine is well maintained. Vertebral body heights are well-maintained. Minimal disc space height loss at C6/C7. No severe disc space height loss. No advanced facet joint degenerative changes. The lateral masses are well seated. Visualized portions of the dens unremarkable, though the tip is obscured by overlying osseous structures. No acute fracture or dislocation. No obstructive osseous process. Prevertebral soft tissues are unremarkable. No suspicious radiopaque foreign body. IMPRESSION: No acute osseous abnormality with minimal disc space height loss at C6/C7. Dictated by: Dictated on workstation # [id number]
--- NOTE | 2022-12-05 12:24 | Diagnostic Imaging Report ---
INDICATION: Pain. COMPARISON: 12/28/2020. TECHNIQUE: Three radiographs of the lumbar spine dated 12/05/2022. FINDINGS: Five lumbar type vertebral bodies are present. Alignment of the lumbar spine is well maintained. Vertebral body heights are well-maintained. Disc space heights are well-maintained. No acute fracture or dislocation. No destructive osseous process. The sacroiliac joints are intact. IMPRESSION: No acute osseous abnormality. Dictated by: Dictated on workstation # [id number]
== END ==
LOC: RAD 08:07
PROVIDERS: ATTEND Nurse Practitioner Family
DX: M54.50 Low back pain, unspecified (principal); M54.2 Cervicalgia
CPT/HCPCS: 72040; 72100

== ENCOUNTER 2022-12-11 13:20 | Outpatient (RCR) | payer OTHER | END 2022-12-12 | disposition home or self-care (01) | PROVIDERS: ATTEND Nurse Practitioner Family | DX: M54.16 Radiculopathy, lumbar region (principal); M54.2 Cervicalgia; J45.909 Unspecified asthma, uncomplicated ==

== ENCOUNTER 2023-01-03 14:54 | Outpatient (RCR) | payer OTHER | END 2023-01-12 | disposition home or self-care (01) | PROVIDERS: ATTEND Nurse Practitioner Family | DX: M54.16 Radiculopathy, lumbar region (principal); M54.2 Cervicalgia; J45.909 Unspecified asthma, uncomplicated ==

== ENCOUNTER → 2023-01-08 | Outpatient (CLI) | payer OTHER ==
--- NOTE | 2023-01-08 13:52 | Diagnostic Imaging Report ---
EXAMINATION: MRI of the thoracic spine without contrast. TECHNIQUE: Sagittal T1 and multiplanar grass images with axial grass acquisition images as well. FINDINGS: Normal alignment of the thoracic spine. No marrow replacement process to suggest malignancy. Multilevel vertebral body hemangiomas. Mild multilevel disc height loss. Disc desiccation. Disc bulge at T9-T10 causing moderate spinal canal narrowing. Remainder of the spinal canal is widely patent. No neural foraminal narrowing. Mild multilevel facet arthritis. Normal signal within the spinal cord. The surrounding soft tissue is normal. IMPRESSION: Disc bulge at T9-T10 causing moderate spinal canal stenosis. No other areas of significant narrowing within the thoracic spine. Normal appearance of the thoracic spinal cord. Dictated by: Dictated on workstation # [id number]
--- NOTE | 2023-01-08 15:39 | Diagnostic Imaging Report ---
PROCEDURE: MR imaging cervical spine without contrast. TECHNIQUE: Multiplanar, multisequence MR imaging of the cervical spine was performed without contrast. INDICATION: Chronic neck pain. Right hand numbness. COMPARISON: 12/05/2022. FINDINGS: No acute fracture or dislocation is seen in the cervical spine. There is straightening of the cervical spine. The vertebral body heights and disc spaces are well maintained. The bone marrow signal is unremarkable. No focal osseous lesions. The craniocervical junction is maintained. The cervical spinal cord demonstrates normal intrinsic signal. No epidural collections are seen. Perineural cysts are seen bilaterally at C6-C7 and C7-T1. The included brainstem and posterior fossa have normal appearance. Multilevel degenerative changes are seen in the cervical spine with posterior disc bulges and uncovertebral arthropathy. C2-C3: No significant spinal canal or foraminal stenosis. C3-C4: No significant spinal canal or foraminal stenosis. C4-C5: Small posterior disc bulge and uncovertebral arthropathy results in no significant spinal canal narrowing and mild bilateral foraminal narrowing. C5-C6: posterior disc bulge and uncovertebral arthropathy results in mild spinal canal narrowing and no right and mild left foraminal narrowing. C6-C7: Posterior disc bulge and uncovertebral arthropathy results in moderate spinal canal stenosis and mild right and occx-ex-guoeteud left foraminal narrowing. C7-T1: No significant spinal canal or foraminal stenosis. The soft tissues of neck are unremarkable. IMPRESSION: 1. No acute fracture or dislocation of the cervical spine. 2. Multilevel degenerative changes in the cervical spine, greatest at C5-C6 and C6-C7. Dictated by: Dictated on workstation # [id number]
== END ==
LOC: RAD 09:13
PROVIDERS: ATTEND Nurse Practitioner Family
DX: M51.24 Other intervertebral disc displacement, thoracic region (principal); M48.04 Spinal stenosis, thoracic region; M47.812 Spondylosis without myelopathy or radiculopathy, cervical region
CPT/HCPCS: 72141; 72146

== ENCOUNTER → 2023-01-22 | Outpatient (CLI) | payer OTHER ==
--- NOTE | 2023-01-22 14:10 | Diagnostic Imaging Report ---
Clinical indications: Patient is having spine pain. Exam: MRI of the lumbar spine performed without IV contrast. Sagittal T2, sagittal T1, sagittal stir, axial T1, and axial T2. Comparison: MRI of the lumbar spine without contrast dated 12/29/2017. Findings: There is no acute lumbar spine fracture. The lumbar vertebra have normal T1 and T2 signal. The visualized portions of the distal spinal cord, conus medullaris, and cauda equina have normal anatomic appearance. The conus medullaris tip is seen at the lower L1 vertebral body level. No paraspinal soft tissue abnormality is seen. There are small degenerative spurs involving the lumbar spine. L1-L2: Unremarkable. L2-L3: There is interval development of subtle grade 1 retrolisthesis of L2 on L3. There is no pars defects seen. There is no significant disk bulge. There is no significant central spinal canal or neural foramen narrowing. L3-L4: There is interval progression of moderate bilateral facet arthropathy/hypertrophy. There is mild right neural foramen narrowing which has progressed. There is no significant left neural foramen narrowing. There is no significant central canal narrowing. L4-L5: There is moderate bilateral facet arthropathy and degenerative facet effusion which has progressed. There is no significant central canal narrowing. There is mild bilateral neural foramen narrowing due to slight progression of disk spurs into the foraminal regions. L5-S1: There is mild bilateral facet arthropathy. There is no significant central spinal canal or neural foramen narrowing. There is no significant disk bulge. Impression: There is interval progression of lumbar spine degenerative disk disease. There is also interval development of subtle grade 1 retrolisthesis of L2 on L3 with no pars defect. Dictated by: Dictated on workstation # [id number]
== END ==
LOC: RAD 13:15
PROVIDERS: ATTEND Nurse Practitioner Family
DX: M51.16 Intervertebral disc disorders with radiculopathy, lumbar region (principal)
CPT/HCPCS: 72148

== ENCOUNTER → 2023-04-26 | Outpatient (CLI) | payer OTHER | LOC: ORTHO 09:16 | PROVIDERS: ATTEND Orthopaedic Surgery | DX: M25.561 Pain in right knee (principal); M25.562 Pain in left knee ==

== ENCOUNTER → 2023-06-29 | Outpatient (CLI) | payer OTHER ==
--- NOTE | 2023-06-29 16:25 | Diagnostic Imaging Report ---
EXAMINATION: Lumbar spine radiographs, 2 views, flexion and extension. COMPARISON: December 05, 2022. HISTORY: 48-year-old female, low back pain. FINDINGS: The lumbar disc heights are well preserved. There is unremarkable alignment of the lumbar spine and no change in alignment with flexion or extension. There is no identified compression deformity or fracture. IMPRESSION: 1. Normal alignment of the lumbar spine without abnormal motion during flexion or extension. 2. Well preserved lumbar disc heights. 3. No identified compression deformity or fracture. Dictated by: Dictated on workstation # [id number]
== END ==
LOC: RAD 13:49
PROVIDERS: ATTEND Physical Medicine & Rehabilitation
DX: M54.9 Dorsalgia, unspecified (principal)
CPT/HCPCS: 72100

== ENCOUNTER 2023-08-13 14:46 | Outpatient (RCR) | payer OTHER | END 2023-08-14 | disposition home or self-care (01) | DX: M54.16 Radiculopathy, lumbar region (principal); M54.2 Cervicalgia ==

== ENCOUNTER 2023-08-23 08:33 | Outpatient (RCR) | payer OTHER | END 2023-08-28 09:45 | disposition home or self-care (01) | DX: M54.16 Radiculopathy, lumbar region (principal); M54.2 Cervicalgia ==